=== PATIENT | female | born 2000 | race Caucasian/White ===

== ENCOUNTER 2023-07-29 13:10 | Emergency (ER) | payer OTHER, BC ==
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
[2023-07-29 14:39] VITALS: BP 138/79; PULSE 80; RESP 18; TEMP 97.9
== END 2023-07-29 14:26 | disposition home or self-care (01) ==
LOC: EC 13:10
DX: S05.12XA Contusion of eyeball and orbital tissues, left eye, initial encounter (principal); S09.90XA Unspecified injury of head, initial encounter; Z86.59 Personal history of other mental and behavioral disorders; Z88.0 Allergy status to penicillin; W22.8XXA Striking against or struck by other objects, initial encounter; Y99.0 Civilian activity done for income or pay
CPT/HCPCS: 99283